=== PATIENT | female | born 1945 | race Caucasian/White ===

== ENCOUNTER 2018-03-18 12:49 | Inpatient (IN) | payer OTHER ==
[~2018-03-18] VITALS: Ht 165.1 cm; Wt 117.5 kg
--- NOTE | 2018-03-18 12:50 | NUR ---
PT BIBA BLS FOR DERMATITIS TO BED 1
[2018-03-18 12:54] VITALS: BP 124/86
--- NOTE | 2018-03-18 13:00 | NUR ---
PATIENT BIBA FOR SEVERE DERMATITIS RASH WITH GENERALIZED PAIN. SKIN APPEARS RED AND INFLAMMED, BLISTERED, AND HOT TO TOUCH. AREAS THAT APPEAR WORSE ARE BREAST, UNDER AXILAS, PELVIC AREA, AND BACK. PATIENT STATES PAIN IS 10/10 ALL OVER. DENIES N/V/D; LUNGS CLEAR BL; HR EVEN AND REGULAR; VSS; PATIENT POSITIONED FOR COMFORT; HOB ELEVATED; BEDRAILS UP X2; BED DOWN. ER MD MADE AWARE OF PT STATUS.
[2018-03-18] MEDS ORDERED: OMEP20TC12 PO (13:15)
[2018-03-18] MEDS ORDERED: ACET-2619 PO (13:15)
[2018-03-18] MEDS ORDERED: ACET-2858 PO (13:15)
[2018-03-18] MEDS ORDERED: NITR0.4T2 SL (13:15)
[2018-03-18] MEDS ORDERED: MAGN400S60 PO (13:15)
[2018-03-18] MEDS ORDERED: [UNRECOGNIZED DRUG - CODE] PO (13:15)
[2018-03-18] MEDS ORDERED: NA P135N RC (13:15)
[2018-03-18] MEDS ORDERED: ACET-9800 PO (13:15)
[2018-03-18] MEDS ORDERED: BISA-213 RC (13:15)
[2018-03-18] MEDS ORDERED: SERT25TA PO (13:15)
[2018-03-18] MEDS ORDERED: LOSA25TA22 PO (13:15)
[2018-03-18] MEDS ORDERED: SYN.075 PO (13:15)
[2018-03-18] MEDS ORDERED: MAA30 PO (13:15)
[2018-03-18] MEDS ORDERED: diphenhydrAMINE 50 MG/ML VIAL IVP ONE (13:30)
[2018-03-18] MEDS ORDERED: fentaNYL 0.05 MG/ML VIAL IVP ONE (13:30)
[2018-03-18] MEDS ORDERED: NACL 0.9% 1,000 ML IV ONE (13:30)
[2018-03-18] MEDS ORDERED: FAMOTIDINE 20 MG/2 ML VIAL IVP ONE (13:30)
[2018-03-18 13:49] LABS: BASOPHILS # (AUTO) 0.1 K/uL (0.00-0.22); BASOPHILS % (AUTO) 0.5 % (0.0-2.0); EOSINOPHILS # (AUTO) 0.9 K/uL (0-0.4); HEMATOCRIT 42.7 % (36-48); HEMOGLOBIN 13.3 g/dL (12.0-16.0); LYMPHOCYTES # (AUTO) 1.2 K/uL (2.5-16.5); LYMPHOCYTES % (AUTO) 10.9 % (20.5-51.1); MEAN CORPUSCULAR HEMOGLOBIN 24 pg (27-31); MEAN CORPUSCULAR HGB CONC 31 g/dL (33-37); MEAN CORPUSCULAR VOLUME 76.7 fL (80-94); MONOCYTES % (AUTO) 8.9 % (1.7-9.3); NEUTROPHILS % (AUTO) 71.7 % (42.2-75.2); PLATELET COUNT (AUTO) 267 K/uL (140-450); RED BLOOD CELL COUNT(AUTO) 5.57 MIL/uL (4.20-5.40); RED CELL DISTRIBUTION WIDTH 20.2 % (11.6-13.7); WHITE BLOOD COUNT (AUTO) 11.2 K/uL (4.8-10.8)
[2018-03-18 14:09] LABS: ANION GAP 11.4 (8-16); CHLORIDE 105 mmol/L (98-107); GLUCOSE 102 mg/dL (74-106); POTASSIUM 3.4 mmol/L (3.5-5.1); SODIUM SERUM 143 mmol/L (136-145); UREA NITROGEN, BLOOD 20 mg/dL (7-18)
[2018-03-18 14:14] LABS: ALBUMIN 3.4 g/dL (3.4-5.0); ASPARTATE AMINOTRANSFERASE 37 U/L (15-37); TOTAL BILIRUBIN 0.6 mg/dL (0.0-1.0)
[2018-03-18 14:32] LABS: PROTHROMBIN TIME 11.4 secs (10.8-13.4)
[2018-03-18] MEDS ORDERED: DOCUSATE SODIUM 100 MG GELCAP PO PRN (14:40)
[2018-03-18] MEDS ORDERED: ONDANSETRON 4 MG/2 ML VIAL IM/IVP PRN (14:40)
[2018-03-18] MEDS ORDERED: HYDROcodone/APAP 7.5/325 MG 1 TAB PO PRN (14:40)
[2018-03-18] MEDS ORDERED: ACETAMINOPHEN 325 MG TAB PO PRN (14:40)
[2018-03-18 15:09] LABS: MAGNESIUM 1.8 mg/dL (1.8-2.4); PHOSPHORUS 2.6 mg/dL (2.5-4.9); THYROID STIMULATING HORMONE 4.05 uIU/mL (0.34-3.74)
--- NOTE | 2018-03-18 15:40 | NUR ---
Patient will be admitted to care of DR. CADET. Admited to MED-SURG. Will go to room 122B. Belongings list completed. Report to ELIDA PETERS.
[2018-03-18] MEDS ORDERED: NITROGLYCERIN 0.4 MG TAB SL PRN (15:45)
[2018-03-18] MEDS ORDERED: SODIUM PHOSPHATE 118 ML ENEM RC PRN (15:45)
[2018-03-18 16:00] VITALS: BP 142/96
--- NOTE | 2018-03-18 16:00 | NUR ---
PT RECEIVED FROM ER TO 122B. REPORT RECEIVED FROM ER NURSE. PT TO BED FROM [facility]. INITIAL ASSESSMENT DONE. MRSA NARES SWAB COLLECTED AND SENT TO LAB. WOUND CARE ASSESSMENT COMPLETE. RASH THROUGHOUT BODY BUT NO OPEN WOUNDS. PT WAS CHANGED DUE TO SMALL BM. VS TAKEN. PT IN STABLE CONDITION. PT AWAKE, ALERT, AND ORIENTED.BED IN LOCKED AND IN LOW POSITION. NEW [place] IN PLACE. CALL MANUEL WITHIN REACH. WILL CONTINUE TO MONITOR.
[2018-03-18 16:11] LABS: APPEARANCE,URINE SL CLOUDY (CLEAR); BLOOD, URINE 1+ (NEGATIVE); COLOR,URINE YELLOW (YELLOW); LEUKOCYTE ESTERASE ,URINE TRACE (NEGATIVE); NITRITE, URINE NEGATIVE (NEGATIVE); UGLUCOSE NEGATIVE (NEGATIVE)
[2018-03-18 16:47] LABS: BILIRUBIN,URINE NEGATIVE (NEGATIVE)
[2018-03-18 16:56] LABS: RBC,URINE 3-10 (FEW) /HPF (0-5); WBC,URINE 6-15 (FEW) /HPF (0-5)
[2018-03-18] MEDS: MORPHINE SULFATE 4 MG/ML SYR IVP PRN (19:16)
--- NOTE | 2018-03-18 19:38 | NUR ---
REPORT GIVEN TO NIGHT NURSE AT BEDSIDE. PT IN STABLE CONDITION.
--- NOTE | 2018-03-18 19:39 | NUR ---
PATIENT REPORT RECEIVED FROM MORNING NURSE AT BEDSIDE. PATIENT IS AWAKE, ALERT AND ORIENTED. NO SIGNS AND SYMPTOMS OF DISTRESS NOTED. PATIENT IS ON ROOM AIR. IV SITE NOTED ON LEFT FOREARM, SALINE LOCKED. JOHN CATHETER IN PLACE. PLAN OF CARE DISCUSSED WITH PATIENT. PATIENT VERBALIZED UNDERSTANDING. BED IN LOWEST POSITION, SIDE RAILS UP AND CALL LIGHT WITHIN REACH. WILL CONTINUE TO MONITOR.
[2018-03-18 20:00] VITALS: BP 133/90
--- NOTE | 2018-03-18 20:00 | NUR ---
PATIENT SEEN BY DR. CHAMPAGNE
[2018-03-18] MEDS: FAMOTIDINE 20 MG TAB PO SCH (20:30)
[2018-03-18] MEDS: methylPREDNISolone SS 125 MG/2 ML VIAL IVP SCH (20:30)
[2018-03-18] MEDS: LOSARTAN 25 MG TAB PO SCH (20:31)
[2018-03-18] MEDS: GABAPENTIN 100 MG CAP PO SCH (20:31)
--- NOTE | 2018-03-18 21:00 | NUR ---
MEDICATION EDUCATION GIVEN. PATIENT VERBALIZED UNDERSTANDING. MEDICATION EDUCATION GIVEN. BED IN LOWEST POSITION, SIDE RAILS UP AND CALL LIGHT WITHIN REACH. WILL CONTINUE TO MONITOR.
[2018-03-18] MEDS: diphenhydrAMINE 50 MG/ML VIAL IVP PRN (21:04)
[2018-03-18] MEDS: LORazepam 1 MG TAB PO PRN (21:04)
--- NOTE | 2018-03-18 23:51 | NUR ---
PATIENT REFUSED MIDNIGHT VITAL SIGNS. PATIENT STATED "NO, NOT RIGHT NOW, PLEASE LET ME SLEEP." PATIENT IS IN STABLE CONDITION. WILL CONTINUE TO MONITOR.
--- NOTE | 2018-03-19 01:30 | NUR ---
CHECKED ON PATIENT. PATIENT IS ASLEEP. NO SIGNS AND SYMPTOMS OF DISTRESS NOTED. BREATHING EVEN AND UNLABORED. WILL CONTINUE TO MONITOR.
[2018-03-19] MEDS: methylPREDNISolone SS 125 MG/2 ML VIAL IVP SCH ×3 (05:06→20:30)
[2018-03-19] MEDS: diphenhydrAMINE 50 MG/ML VIAL IVP PRN ×3 (05:21→20:31)
[2018-03-19] MEDS: LORazepam 1 MG TAB PO PRN ×3 (05:31→21:42)
[2018-03-19] MEDS: LEVOTHYROXINE 0.075 MG TAB PO SCH (05:31)
[2018-03-19 05:59] LABS: BASOPHILS # (AUTO) 0.1 K/uL (0.00-0.22); BASOPHILS % (AUTO) 0.8 % (0.0-2.0); EOSINOPHILS # (AUTO) 0.1 K/uL (0-0.4); EOSINOPHILS % (AUTO) 0.8 % (0.0-4.0); HEMATOCRIT 39.1 % (36-48); HEMOGLOBIN 12.2 g/dL (12.0-16.0); LYMPHOCYTES # (AUTO) 0.4 K/uL (2.5-16.5); LYMPHOCYTES % (AUTO) 5.6 % (20.5-51.1); MEAN CORPUSCULAR HEMOGLOBIN 24 pg (27-31); MEAN CORPUSCULAR HGB CONC 31 g/dL (33-37); MEAN CORPUSCULAR VOLUME 76.4 fL (80-94); MONOCYTES % (AUTO) 0.6 % (1.7-9.3); NEUTROPHILS % (AUTO) 92.2 % (42.2-75.2); PLATELET COUNT (AUTO) 202 K/uL (140-450); RED BLOOD CELL COUNT(AUTO) 5.11 MIL/uL (4.20-5.40); RED CELL DISTRIBUTION WIDTH 19.1 % (11.6-13.7); WHITE BLOOD COUNT (AUTO) 7.6 K/uL (4.8-10.8)
[2018-03-19] MEDS: MORPHINE SULFATE 4 MG/ML SYR IVP PRN ×3 (06:19→20:30)
[2018-03-19 06:24] LABS: ANION GAP 11.7 (8-16); CARBON DIOXIDE 27.2 mmol/L (21-32); CHLORIDE 109 mmol/L (98-107); CREATININE 0.8 mg/dL (0.6-1.3); GLUCOSE 153 mg/dL (74-106); POTASSIUM 3.9 mmol/L (3.5-5.1); SODIUM SERUM 144 mmol/L (136-145); UREA NITROGEN, BLOOD 17 mg/dL (7-18)
[2018-03-19 06:28] LABS: MAGNESIUM 1.7 mg/dL (1.8-2.4); PHOSPHORUS 3.6 mg/dL (2.5-4.9)
[2018-03-19] MEDS ORDERED: NON-FORMULARY ITEM (Omeprazole (Omeprazole) 20 MG) PO SCH (06:30)
--- NOTE | 2018-03-19 06:30 | NUR ---
PATIENT COMPLAINING OF ITCHINESS AND PAIN. PATIENT MEDICATED ORDERED
[2018-03-19] MEDS: PANTOPRAZOLE 40 MG TABEC PO SCH (06:33)
--- NOTE | 2018-03-19 07:25 | NUR ---
PATIENT REPORT GIVEN TO MORNING NURSE AT BEDSIDE FOR CONTINUITY OF CARE. PATIENT IS IN STABLE CONDITION
--- NOTE | 2018-03-19 07:26 | NUR ---
RECEIVED REPORT FROM ENGINEERING PRODUCTION WORKER NURSE. PATIENT SITTING IN BED COMFORTABLY. NO DISTRESS NOTED. DENIES ANY PAIN AT THIS TIME. RESPIRATIONS EVEN, UNLABORED, ON ROOM AIR. AAOX4, CALM, COOPERATIVE, SKIN COLOR APPROPRIATE TO ETHNICITY, WARM TO TOUCH. HAS SKIN RASH WITH RAISED RED DOTS THROUGHOUT BODY, HOWEVER, SKIN IS INTACT. JOHN CATHETER IN PLACE WITH DARK EVANS URINE. IV SITE INTACT, PATENT, AND ON SALINE LOCK. LUNGS CTA ON ALL LOBES. ABODMEN SOFT, OBESE. REVIEWED PLAN OF CARE WITH PATIENT. PATIENT VERBALIZED UNDERSTANDING. SAFETY MEASURES IN PLACE, CALL LIGHT WITHIN REACH. WILL CONTINUE TO MONITOR.
[2018-03-19 08:00] VITALS: BP 112/86
--- NOTE | 2018-03-19 08:50 | NUR ---
PATIENT HAS BEEN SCREENED AND CATEGORIZED HIGH NUTRITION RISK. PATIENT WILL BE SEEN WITHIN 1-2 DAYS OF ADMISSION. 03/19/18 03/20/[address]
[2018-03-19] MEDS: GABAPENTIN 100 MG CAP PO SCH ×2 (09:35→20:30)
[2018-03-19] MEDS: LOSARTAN 25 MG TAB PO SCH ×2 (09:35→20:32)
[2018-03-19] MEDS: LORATADINE 10 MG TAB PO SCH (09:36)
[2018-03-19] MEDS: SERTRALINE 50 MG TAB PO SCH (09:36)
[2018-03-19] MEDS: FAMOTIDINE 20 MG TAB PO SCH ×2 (09:36→20:31)
--- NOTE | 2018-03-19 09:40 | NUR ---
PATIENT SITTING IN BED, COMPLAINS OF GENERALIZED ITCHING DUE TO RASH. NEXT BENADRYL DOSE NOT DUE YET. ICE PACKS GIVEN TEMPORARY TO HELP WITH ITCHING. OTHER SCHEDULED MEDICATIONS DUE GIVEN. SAFETY MEASURES IN PLACE, CALL LIGHT WITHIN REACH. WILL CONTINUE TO MONITOR.
[2018-03-19] MEDS: LEVOFLOXACIN 500 MG/D5W PREMIX 100 ML IV SCH (12:14)
[2018-03-19 12:27] LABS: T4 (THYROXINE) 7.6 ug/dL (4.5-12.0)
--- NOTE | 2018-03-19 12:30 | NUR ---
PATIENT SITTING IN BED ANXIOUS. WILL MEDICATE WITH ATIVAN. OTHER SCHEDULED MEDICATIONS DUE GIVEN. SAFETY MEASURES IN PLACE, CALL LIGHT WITHIN REACH. WILL CONTINUE TO MONITOR.
--- NOTE | 2018-03-19 13:55 | NUR ---
PATIENT SITTING IN BED. DR. DUNBAR AT BEDSIDE REVIEWING PLAN OF CARE WITH PATIENT. SCHEDULED MEDICATION DUE GIVEN. SAFETY MEASURES IN PLACE, CALL LIGHT WITHIN REACH. WILL CONTINUE TO MONITOR.
--- NOTE | 2018-03-19 14:45 | NUR ---
03/19/18 RD INITIAL ASSESSMENT COMPLETED PLEASE REFER TO NUTRITION ASSESSMENT UNDER CARE ACTIVITY FOR ESTIMATED NUTRITIONAL NEEDS. 1.CONTINUE REGULAR DIET TOLERATED 2.RD TO FOLLOW-UP 2-3 DAYS, HIGH RISK PILI SOTO RD
[2018-03-19] MEDS ORDERED: MAGNESIUM OXIDE 400 MG TAB PO SCH (15:00)
[2018-03-19 16:00] VITALS: BP 119/70
--- NOTE | 2018-03-19 16:00 | NUR ---
JOHN CATHETER IS LEAKING. JOHN CATHETER REMOVED PER MD ORDERS. PATIENT TOLERATED PROCEDURE WELL. WILL CONTINUE TO MONITOR.
--- NOTE | 2018-03-19 17:46 | NUR ---
PATIENT SITTING IN BED WATCHING TV WITH DINNER TRAY IN FRONT. NO DISTRESS NOTED. PAIN WITHIN TOLERABLE. CONDITION UNCHANGED. WILL CONTINUE TO MONITOR.
--- NOTE | 2018-03-19 19:29 | NUR ---
GAVE REPORT TO TOBACCO DIPPER NURSE FOR CONTINUITY OF CARE. PATIENT IN STABLE CONDITION.
--- NOTE | 2018-03-19 19:30 | NUR ---
RECEIVED FROM AM RN IN BED AWAKE AND ALERT. PER AM RN PT. DX. IS UNCONTROLLED DERMATITIS/RASH. BEDBOUND RT HX. STROKE. IVF SITE INTACT AND NO INFILTRATION.ABLE TO VERBALIZE NEEDS WELL. NO SOB. DENIES PAIN AT THIS TIME. CALL LIGHT WITH IN REACH. PT. AT THIS TIME WET HER BEDDING AND CNAS IN HERE TO CHANGE HER BEDDING. WILL TURN TO SIDES Q 2H WITH PILLOW SUPPORT TO PRESSURE AREAS. ISOLATION PRECAUTIONS IN PLACE PER PROTOCOL.
[2018-03-19 20:19] VITALS: BP 123/70
--- NOTE | 2018-03-19 21:45 | NUR ---
ALL MEDICATIONS TAKEN . PT. ANXIOUS AT THIS TIME AND REQUESTED FOR ATIVAN. MEDICATED WITH 1 MG. P.O. EXPLAINED THAT SHE HAD HER OTHER MEDICATIONS 1 HOUR AGO. "OK"
--- NOTE | 2018-03-19 22:33 | NUR ---
PT. STILL AWAKE AT THIS TIME. CALL LIGHT WITH IN REACH. ABLE TO USE IT. PT. RESULT FOR THE SCABIES TEST IS NEGATIVE. RESIDENT MD AWARE. NO FURTHER ORDERS.
[2018-03-19 23:54] VITALS: BP 116/82
--- NOTE | 2018-03-19 23:56 | NUR ---
PT. SLEEPING. WOKE UP EASILY FOR VITAL SIGNS. WENT BACK TO SLEEP EASILY. NO COMPLAINTS AT THIS TIME. CALL LIGHT WITH IN REACH. TURNED Q 2H WITH PILLOW SUPPORT TO PRESSURE AREAS.
--- NOTE | 2018-03-20 04:10 | NUR ---
PT. CHECKED BY CNAS AND STATED THAT SHE IS NOT WET AT THIS TIME. NEEDS ARE ANTICIPATED AND PT. ENCOURAGED TO TURN TO SIDES. PT. ABLE TO TURN SELF OBSERVED BY CNAS AND NURSE/ME.
[2018-03-20] MEDS: methylPREDNISolone SS 125 MG/2 ML VIAL IVP SCH ×3 (05:52→21:00)
[2018-03-20] MEDS: LEVOTHYROXINE 0.075 MG TAB PO SCH (05:53)
[2018-03-20] MEDS: PANTOPRAZOLE 40 MG TABEC PO SCH (05:53)
--- NOTE | 2018-03-20 06:15 | NUR ---
PT. SLEEPING. WAKES UP EASILY WHEN TOUCHED. IVF TUBING FLUSHED TO AVOID INFILTRATION. DENIES PAIN AT THIS TIME. STATED SHE JUST WANTS TO SLEEP NOW .
--- NOTE | 2018-03-20 07:15 | NUR ---
RECEIVED BEDSIDE REPORT FROM DESK DIRECTOR NURSE. PATIENT IS SLEEPING. NO SIGNS OF DISTRESS ON ROOM AIR. IV ON L FA 22G SALINE LOCK. IV IS CLEAN, DRY AND INTACT. SKIN HAS DERMATITIS, SCABIES HAS BEEN RULED OUT. PATIENT IS DNR AND ALLERGIES TO SULFA, ERYTHROMYCIN, IBUPROFEN, NSAIDS. WILL CONTINUE TO MONITOR THE PATIENT.
[2018-03-20] MEDS: MAG SULF 2000 MG/WATER PREMIX 100 ML IV SCH ×2 (08:07→11:12)
[2018-03-20] MEDS: LOSARTAN 25 MG TAB PO SCH ×3 (09:00→21:00)
[2018-03-20] MEDS: LORATADINE 10 MG TAB PO SCH ×2 (09:00→11:02)
[2018-03-20] MEDS: LACTOBACILLUS RHAMNOSUS GG 1 EACH CAP PO SCH ×2 (09:00→11:01)
[2018-03-20] MEDS: FAMOTIDINE 20 MG TAB PO SCH ×3 (09:00→21:00)
[2018-03-20] MEDS: SERTRALINE 50 MG TAB PO SCH ×2 (09:00→11:02)
[2018-03-20] MEDS: GABAPENTIN 100 MG CAP PO SCH ×3 (09:00→21:00)
--- NOTE | 2018-03-20 09:14 | NUR ---
PATIENT REFUSED ALL MEDS AND VITALS. EXPLAINED AND EDUCATED THE PATIENT OF THE RISKS OF NOT GIVING MEDS OR GETTING VITALS ASSESSED/MONITORED. PATIENT STILL REFUSED. DR AVERY SPOKE TO THE PATIENT ABOUT DISCHARGE, WILL CONTINUE TO MONITOR THE PATIENT.
[2018-03-20] MEDS ORDERED: HYDROcodone/APAP 10/325 MG 1 TAB TAB PO PRN (10:50)
[2018-03-20] MEDS ORDERED: MORPHINE SULFATE 4 MG/ML SYR IVP SCH (10:53)
[2018-03-20 11:00] VITALS: BP 141/79
[2018-03-20] MEDS ORDERED: GABA-636 PO (11:07)
[2018-03-20] MEDS: diphenhydrAMINE 50 MG/ML VIAL IVP PRN ×2 (11:07→20:54)
[2018-03-20] MEDS ORDERED: LACT10CA PO (11:07)
[2018-03-20] MEDS ORDERED: DOCU-299 PO (11:07)
[2018-03-20] MEDS ORDERED: PANT40EC28 PO (11:07)
[2018-03-20] MEDS ORDERED: FAMO20TA13 PO (11:07)
[2018-03-20] MEDS ORDERED: LORA10TA19 PO (11:07)
[2018-03-20] MEDS: LORazepam 1 MG TAB PO PRN (11:14)
--- NOTE | 2018-03-20 11:21 | NUR ---
ADMINISTERED MEDS THAT THE PATIENT REFUSED THIS MORNING. PATIENT TOLERATING MEDS WELL. COMPLAINING OF ITCHING, EDUCATED THE IMPORTANCE OF NOT SCRATCHING. PATIENT VERBALIZED UNDERSTANDING. ADMINISTERED PRN MEDS. WILL CONTINUE TO MONITOR THE PATIENT.
[2018-03-20] MEDS ORDERED: clindamycin TOP (11:31)
[2018-03-20] MEDS ORDERED: PRED10TA5 PO (11:31)
[2018-03-20] MEDS: LEVOFLOXACIN 500 MG/D5W PREMIX 100 ML IV SCH (12:23)
--- NOTE | 2018-03-20 12:24 | NUR ---
ADMINISTERED IV ANTIBIOTICS. PATIENT TOLERATING WELL. IV IS CLEAN, DRY AND INTACT. WILL CONTINUE TO MONITOR THE PATIENT AND WORK ON DISCHARGE
--- NOTE | 2018-03-20 12:27 | NUR ---
CALLED [facility] AND GAVE TRANSPORTATION NUMBER #[phone]. CALLED [facility] AND PATIENT WILL GO TO RM [phone] B.
--- NOTE | 2018-03-20 14:20 | NUR ---
ADMINISTERED MEDS. PATIENT TOLERATED WELL. IV IS CLEAN, DRY AND INTACT. NO COMPLAINTS AT THIS TIME. WILL CONTINUE TO MONITOR THE PATIENT.
--- NOTE | 2018-03-20 14:24 | NUR ---
GAVE REPORT TO BILL THE NURSE FROM [facility]. ANSWERED ALL QUESTIONS. PATIENT IS STABLE. WILL CONTINUE TO MONITOR THE PATIENT AND CONTINUE CARE UNTIL TRANSPORT. TRANSPORT WILL NOT COME TILL 1900.
--- NOTE | 2018-03-20 16:00 | NUR ---
PATIENT IS SLEEPING. NO SIGNS OF DISTRESS ON ROOM AIR. BED IN LOW POSITION. CALL LIGHT WITHIN REACH, WILL CONTINUE TO MONITOR THE PATIENT.
--- NOTE | 2018-03-20 17:41 | NUR ---
Nay from [facility] in [place] called and requested to speak to mental health case manager, stating that cannot accept patient unless their mental health case managermanager business systems the case. I informed Nay that the nursing supervisor brake repair at SNF can determine if patient can return today or not. I asked her for the fax number to fax her all information. Nay gave me [phone]. attention to Nay.
--- NOTE | 2018-03-20 17:59 | NUR ---
Valeria called from [facility] from [place] stated that not able to accept patient today per case planner Nay, I asked for Nay number to speak to her, was given [phone]. I called Nay and informed her that patient is stable for discharge and return to the facility, Nay needs to review record. and stated need authorization.
--- NOTE | 2018-03-20 18:00 | NUR ---
PATIENT IS SLEEPING. NO SIGNS OF DISTRESS. WILL CONTINUE TO MONITOR THE PATIENT.
--- NOTE | 2018-03-20 19:14 | NUR ---
GAVE BEDSIDE REPORT TO SERVICE UNIT OPERATOR NURSE. PATIENT IS IN STABLE CONDITION.
--- NOTE | 2018-03-20 19:15 | NUR ---
RECEIVED REPORT FROM DAY SHIFT NURSE. PT SITTING IN BED, EATING. NO C/O PAIN OR ITCHING AT THIS TIME. NO RESP DISTRESS NOTED. PT ON ROOM AIR. IV TO LEFT FA #22G, SALINE LOCK. DISCUSSED PLAN OF CARE, PT VERBALIZED UNDERSTANDING. SAFETY PRECAUTION IN PLACE. CALL LIGHT WITHIN REACH.
--- NOTE | 2018-03-20 20:30 | NUR ---
PT REFUSED DUE MEDS FOR [address] CHAMPAGNE MADE AWARE.
--- NOTE | 2018-03-20 20:55 | NUR ---
PT C/O ITCHING. BENADRYL 25MG IVP GIVEN ORDERED. NO C/O PAIN. NO SOB NOTED.
--- NOTE | 2018-03-20 21:20 | NUR ---
PT ASKED FOR SNACK. SNACK PROVIDED. NO DISTRESS NOTED.
[2018-03-20] MEDS: MORPHINE SULFATE 4 MG/ML SYR IVP PRN (22:10)
--- NOTE | 2018-03-20 23:45 | NUR ---
MEHREEN CARE AND LINEN CHANGED BY FOOD EQUIPMENT SERVICE TECHNICIAN. ALL NEEDS MET AT THIS TIME. NO C/O PAIN.
[2018-03-21] VITALS: BP 115/77
--- NOTE | 2018-03-21 02:05 | NUR ---
PT SLEEPING BUT EASILY AROUSABLE. NO S/S OF PAIN. RESP EVEN AND UNLABORED. FALL PRECAUTION IN PLACE.
--- NOTE | 2018-03-21 04:21 | NUR ---
PT REFUSED TO BE CHANGED/CLEANED BY MANAGER INTERNSHIP. PT STATED SHE IS NOT WET. NO C/O PAIN OR ITCHING AT THIS TIME. SAFETY PRECAUTION IN PLACE. CALL LIGHT WITHIN REACH.
--- NOTE | 2018-03-21 04:52 | NUR ---
PT REFUSED SOLU MEDROL 40MG IVP. PT STATED SHE JUST WANT TO SLEEP.
[2018-03-21] MEDS: methylPREDNISolone SS 125 MG/2 ML VIAL IVP SCH ×2 (05:00→13:53)
[2018-03-21] MEDS: LEVOTHYROXINE 0.075 MG TAB PO SCH (06:30)
[2018-03-21] MEDS: PANTOPRAZOLE 40 MG TABEC PO SCH (06:31)
--- NOTE | 2018-03-21 06:32 | NUR ---
DUE MEDS GIVEN. PT TOLERATED WELL. PT REFUSED BLOOD DRAW.
--- NOTE | 2018-03-21 07:15 | NUR ---
ENDORSED PT TO DAY SHIFT NURSE. PT IN STABLE CONDITION.
--- NOTE | 2018-03-21 07:16 | NUR ---
RECEIVED PT FROM PM NURSE AT BEDSIDE FOR CONTINUITY OF CARE. PT LYING ON BED, SLEEPING. UPDATED PT BOARD. ALL SAFETY MEASURE IN PLACE. WILL CONTINUE TO MONITOR.
[2018-03-21 08:00] VITALS: BP 153/76
[2018-03-21] MEDS: MORPHINE SULFATE 4 MG/ML SYR IVP PRN (08:45)
[2018-03-21] MEDS: LOSARTAN 25 MG TAB PO SCH (08:45)
[2018-03-21] MEDS: SERTRALINE 50 MG TAB PO SCH (08:46)
[2018-03-21] MEDS: GABAPENTIN 100 MG CAP PO SCH (08:46)
[2018-03-21] MEDS: FAMOTIDINE 20 MG TAB PO SCH (08:46)
[2018-03-21] MEDS: LACTOBACILLUS RHAMNOSUS GG 1 EACH CAP PO SCH (08:47)
[2018-03-21] MEDS: LORATADINE 10 MG TAB PO SCH (08:47)
[2018-03-21] MEDS ORDERED: ABI10 PO (10:24)
--- NOTE | 2018-03-21 10:41 | NUR ---
CALLED [facility] AT FACILITY. THEY ARE ABLE TO RECEIVE PT TODAY. NOTIFIED CHARGE NURSE. CHARGE NURSE CALLED FOR TRANSPORTATION. [facility] ETA: [phone]. WILL GIVE REPORT TO FACILITY AND START ON DC.
[2018-03-21] MEDS: LEVOFLOXACIN 500 MG/D5W PREMIX 100 ML IV SCH (11:01)
--- NOTE | 2018-03-21 11:05 | NUR ---
PT C/O CHEST PAIN. ASKED HER WHAT HER LEVEL WAS. SHE SAID SHE DIDN'T KNOW. ADMINISTERED NITROGLYCERINE. STARTED HER LEVAQUIN TOO. PT IS TOLERATING WELL. NOTIFIED HER OF HER TRANSFER TODAY. PT IS AWARE. WILL CONTINUE TO MONITOR PT.
--- NOTE | 2018-03-21 11:12 | NUR ---
PT VERBALIZED RELIEF OF CHEST PAIN.APPEARS CALM AND AT REST. PT ASKED FOR WATER AND DRANK. PLACED BEDSIDE TABLE NEAR BED. PT ASKED FOR LUNCH TIME. NOTIFIED WILL BE AROUND 11:30 TO 12:00.PT STABLE AT THIS TIME.WILL CONTINUE TO MONITOR PT.
--- NOTE | 2018-03-21 12:43 | NUR ---
PT SLEEPING. WOKE UP PT FOR AFTERNOON MED. PT DIDN'T WANT TO BE BOTHERED. ASKED ABOUT PAIN. SHE SAID SHE IS FINE. REFUSED THE MED AND WENT BACK TO SLEEP. WILL CONTINUE TO MONITOR PT.
--- NOTE | 2018-03-21 13:58 | NUR ---
ADMINISTERED SOLUMEDROL. PT TOLERATED WELL. PT RESTING COMFORTABLY.WILL CONTINUE TO MONITOR PT.
[2018-03-21 16:00] VITALS: BP 127/96
--- NOTE | 2018-03-21 16:00 | NUR ---
GAVE D/C REPORT. REMOVED IV, CANNULA INTACT. NO BLEEDING NOTED. GATHERED HER BELONGINGS. CHANGED PT TO TRANSPORT GOWN AND BLANKET. PT IS READY TO GO. ALL ID BANDS REMOVED. PT IN STABLE CONDITION.
--- NOTE | 2018-03-21 16:20 | NUR ---
[facility] IS HERE TO TAKE PT TO [facility]. GAVE REPORT. SIGNED RIGHT DOCUMENTS. PT IS IN STABLE CONDITION.
[2018-03-22] MEDS ORDERED: ARIPiprazole 10 MG TAB PO SCH (09:00)
== END 2018-03-21 16:20 | disposition home or self-care (01) | DRG 202 ==
LOC: MED 12:49 → MTU 14:41
PROVIDERS: ADMIT Family Medicine Sports Medicine; ATTEND Family Medicine Sports Medicine
DX: J45.909 Unspecified asthma, uncomplicated (principal); I69.354 Hemiplegia and hemiparesis following cerebral infarction affecting left non-dominant side; E66.01 Morbid (severe) obesity due to excess calories; E87.8 Other disorders of electrolyte and fluid balance, not elsewhere classified; N39.0 Urinary tract infection, site not specified; Z68.41 Body mass index [BMI] 40.0-44.9, adult; L23.9 Allergic contact dermatitis, unspecified cause; E03.9 Hypothyroidism, unspecified; E87.6 Hypokalemia; I10 Essential (primary) hypertension; F32.9 Major depressive disorder, single episode, unspecified; Z96.642 Presence of left artificial hip joint; R26.81 Unsteadiness on feet; F41.9 Anxiety disorder, unspecified; M19.90 Unspecified osteoarthritis, unspecified site; Z87.11 Personal history of peptic ulcer disease; Z87.891 Personal history of nicotine dependence; Z88.2 Allergy status to sulfonamides; Z90.49 Acquired absence of other specified parts of digestive tract; Z90.710 Acquired absence of both cervix and uterus; Z88.1 Allergy status to other antibiotic agents; Z88.8 Allergy status to other drugs, medicaments and biological substances
CPT/HCPCS: 36415; 71045; 80048; 80053; 81001; 83036; 83735; 83880; 84100; 84436; 84443; 84479; 85025; 85610; 85730; 87081; 87086; 87205; 93005; 96361; 96374; 96375; 99285; J1200; J1956; J2270; J2930; J3010; J3475; J3490; J7030; Q0092; Q0163

== ENCOUNTER 2018-04-03 20:03 | Emergency (ER) | payer OTHER ==
[~2018-04-03] VITALS: Ht 167.6 cm; Wt 90.7 kg
[~2018-04-03 20:03] MED LIST: ABI10 PO; ACET-2619 PO; ACET-2858 PO; ACET-9800 PO; BISA-213 RC; DOCU-299 PO; FAMO20TA13 PO; GABA-636 PO; LACT10CA PO; LORA10TA19 PO; LOSA25TA22 PO; MAA30 PO; MAGN400S60 PO; NA P135N RC; NITR0.4T2 SL; OMEP20TC12 PO; PANT40EC28 PO; PRED10TA5 PO; SERT25TA PO; SYN.075 PO; [UNRECOGNIZED DRUG - CODE] PO; clindamycin TOP
[2018-04-03 20:10] VITALS: BP 138/79
--- NOTE | 2018-04-03 20:10 | NUR ---
[facility] BLS TO ER BED 1
--- NOTE | 2018-04-03 20:10 | NUR ---
PATIENT PRESENTS TO ED BIBA WITH ITCHY SKIN, PRURITIS X3 MONTHS . PT DENIES N/V/D; SKIN IS PINK/WARM/DRY; AAOX4 WITH EVEN AND STEADY GAIT; LUNGS CLEAR BL; HR EVEN AND REGULAR; PT DENIES ANY FEVER, CP, SOB, OR COUGH AT THIS TIME; PATIENT STATES PAIN OF 10/10 AT THIS TIME; VSS; PATIENT POSITIONED FOR COMFORT; HOB ELEVATED; BEDRAILS UP X1; BED DOWN. ER MD MADE AWARE OF PT STATUS.
[2018-04-03] MEDS ORDERED: diphenhydrAMINE 50 MG/ML VIAL IVP ONE (20:45)
[2018-04-03] MEDS ORDERED: MORPHINE SULFATE 4 MG/ML SYR IVP ONE ×2 (20:45→22:25)
[2018-04-03] MEDS ORDERED: ATI.5 PO (20:53)
[2018-04-03] MEDS ORDERED: LYR75 PO (20:53)
[2018-04-03] MEDS ORDERED: MONT10TA35 PO (20:53)
[2018-04-03] MEDS ORDERED: GABA300C PO (20:53)
[2018-04-03] MEDS ORDERED: CLOB0.0525 TP (20:53)
[2018-04-03] MEDS ORDERED: BEN50 PO (20:53)
[2018-04-03 21:21] LABS: BASOPHILS % (AUTO) 0.2 % (0.0-2.0); EOSINOPHILS # (AUTO) 1.6 K/uL (0-0.4); EOSINOPHILS % (AUTO) 13.7 % (0.0-4.0); HEMATOCRIT 40.5 % (36-48); HEMOGLOBIN 12.6 g/dL (12.0-16.0); LYMPHOCYTES # (AUTO) 1.3 K/uL (2.5-16.5); LYMPHOCYTES % (AUTO) 11.6 % (20.5-51.1); MEAN CORPUSCULAR HEMOGLOBIN 24 pg (27-31); MEAN CORPUSCULAR HGB CONC 31 g/dL (33-37); MEAN CORPUSCULAR VOLUME 77.3 fL (80-94); MONOCYTES # (AUTO) 0.8 K/uL (0.8-1.0); MONOCYTES % (AUTO) 7.3 % (1.7-9.3); NEUTROPHILS # (AUTO) 7.8 K/uL (1.8-7.7); NEUTROPHILS % (AUTO) 67.2 % (42.2-75.2); PLATELET COUNT (AUTO) 248 K/uL (140-450); RED BLOOD CELL COUNT(AUTO) 5.25 MIL/uL (4.20-5.40); RED CELL DISTRIBUTION WIDTH 20.8 % (11.6-13.7); WHITE BLOOD COUNT (AUTO) 11.6 K/uL (4.8-10.8)
[2018-04-03 21:32] LABS: ANION GAP 10.5 (8-16); CARBON DIOXIDE 28.9 mmol/L (21-32); CHLORIDE 111 mmol/L (98-107); CREATININE 0.9 mg/dL (0.6-1.3); GLUCOSE 108 mg/dL (74-106); POTASSIUM 4.4 mmol/L (3.5-5.1); SODIUM SERUM 146 mmol/L (136-145); UREA NITROGEN, BLOOD 19 mg/dL (7-18)
--- NOTE | 2018-04-03 22:45 | NUR ---
PATIENT HAS BEEN DISCHARGED BY DR. YOUNG. CALLED PATIENTS PERSON TO NOTIFY YOBANI BLANCO TO PICK PATIENT UP AND SHE STATES " I AM 2 AND A HALF HOURS AWAY THERE IS NO WAY I CAN PICK HER UP". ALSO CALLED PATIENTS [facility] FOR TRANSPORT. CHARGE NURSE AND [employer] SPECIALIST BOTH DECLINED TRANSPORT. WILL FOLLOW UP WITH NATHANIEL VENCESSUPERVISOR WINTER ELIDA FOR TRANSPORT INFORMATION.
--- NOTE | 2018-04-04 01:24 | NUR ---
Patient discharged with v/s stable. Written and verbal after care instructions given and explained. Patient verbalized understanding. Ambulance Transport with [facility] to senior care. All questions addressed prior to discharge. Advised to follow up with PMD.
[2018-04-04 01:30] VITALS: BP 115/66
== END 2018-04-04 01:29 ==
LOC: MED 20:03
DX: R21 Rash and other nonspecific skin eruption (principal); J45.909 Unspecified asthma, uncomplicated; I10 Essential (primary) hypertension; Z79.899 Other long term (current) drug therapy; Z88.2 Allergy status to sulfonamides; Z88.8 Allergy status to other drugs, medicaments and biological substances
CPT/HCPCS: 36415; 80048; 85025; 96374; 96375; 96376; 99284; J1200; J2270